=== PATIENT | male | born 1980 | race Hispanic/Latino ===

== ENCOUNTER 2018-08-20 11:29 | Observation (INO) | payer SELFPAY ==
[~2018-08-20] VITALS: Ht 165.1 cm; Wt 89.5 kg
[~2018-08-20 11:29] MED LIST: LIPITOR20 MG OR; NAPROSYN500 MG OR
[2018-08-20] MEDS ORDERED: LISINOPRIL20 MG PO (11:41)
[2018-08-20 12:57] LABS: HEMATOCRIT 46.1 % (39.0-50.0); HEMOGLOBIN 14.7 g/dl (14.0-18.0); IMMATURE GRANULOCYTES 0.1 % (0.0-5.0); MEAN CELL VOLUME 88.1 fL CALC (80.0-100.0); MEAN CORPUSCULAR HGB 28.1 pG CALC (26.0-32.0); MEAN CORPUSCULAR HGB CONC 31.9 g/L CALC (32.0-36.0); NEUT# 3.23 thou/uL (1.82-7.42); RED BLOOD COUNT 5.23 mill/uL (4.70-6.10); RED CELL DISTRI WIDTH 13.2 % (11.5-15.5)
[2018-08-20 13:11] LABS: ALBUMIN 4.6 g/dL (3.2-5.0); ALKALINE PHOSPHATASE 90 u/l (38-126); ANION GAP 17 (6-22 (CALC)); BILIRUBIN, TOTAL 0.7 mg/dL (0.0-1.4); BUN 15 mg/dL (9-20); BUN/CREATININE RATIO 24 (12-20 (CALC)); CARBON DIOXIDE 21 mmol/l (22-30); CHLORIDE 107 mmol/l (95-108); CREATININE 0.6 mg/dL (0.7-1.3); GFR > 60 ML/MIN (>=60 (CALC)); GFR FOR AFR.AMER. > 60 ML/MIN (>=60 (CALC)); POTASSIUM 4.7 mmol/l (3.5-5.1); SGOT/AST 37 u/l (17-59); SODIUM 140 mmol/l (137-146); TOTAL PROTEIN 7.6 g/dL (6.3-8.2)
[2018-08-20 16:25] VITALS: BP 143/106
[2018-08-20 17:58] VITALS: BP 148/90
[2018-08-20 20:09] VITALS: BP 103/75; BP 122/55
[2018-08-21 00:15] VITALS: BP 106/89
[2018-08-21 04:35] VITALS: BP 116/73
[2018-08-21 06:27] LABS: HEMATOCRIT 44.6 % (39.0-50.0); HEMOGLOBIN 14.3 g/dl (14.0-18.0); IMMATURE GRANULOCYTES 0.1 % (0.0-5.0); MEAN CELL VOLUME 88.3 fL CALC (80.0-100.0); MEAN CORPUSCULAR HGB 28.3 pG CALC (26.0-32.0); MEAN CORPUSCULAR HGB CONC 32.1 g/L CALC (32.0-36.0); NEUT# 3.34 thou/uL (1.82-7.42); RED BLOOD COUNT 5.05 mill/uL (4.70-6.10); RED CELL DISTRI WIDTH 13.5 % (11.5-15.5)
[2018-08-21 06:41] LABS: ALBUMIN 3.8 g/dL (3.2-5.0); ALKALINE PHOSPHATASE 80 u/l (38-126); AMYLASE 47 u/l (30-110); ANION GAP 12 (6-22 (CALC)); BILIRUBIN, TOTAL 0.5 mg/dL (0.0-1.4); BUN 17 mg/dL (9-20); BUN/CREATININE RATIO 20 (12-20 (CALC)); CARBON DIOXIDE 27 mmol/l (22-30); CHLORIDE 107 mmol/l (95-108); CREATININE 0.9 mg/dL (0.7-1.3); GFR > 60 ML/MIN (>=60 (CALC)); GFR FOR AFR.AMER. > 60 ML/MIN (>=60 (CALC)); LIPASE 98 u/l (23-300); MAGNESIUM 1.9 mg/dL (1.6-2.3); POTASSIUM 4.5 mmol/l (3.5-5.1); SGOT/AST 25 u/l (17-59); SODIUM 141 mmol/l (137-146); TOTAL PROTEIN 6.6 g/dL (6.3-8.2)
[2018-08-21 08:00] VITALS: BP 143/91
[2018-08-21 11:30] VITALS: BP 111/72
[2018-08-21] MEDS ORDERED: LISINOPRIL20 MG PO (14:35)
== END 2018-08-21 15:22 | disposition home or self-care (01) | DRG 305 ==
LOC: ED 11:29 → ED-I 12:33 → ED 14:05 → MS2 14:06
PROVIDERS: Family Medicine; ADMIT Internal Medicine Nephrology; ATTEND Internal Medicine Nephrology
DX: I10 Essential (primary) hypertension (principal); E78.5 Hyperlipidemia, unspecified; F10.10 Alcohol abuse, uncomplicated; T46.5X6A Underdosing of other antihypertensive drugs, initial encounter
CPT/HCPCS: G0378; J1650

== ENCOUNTER 2019-12-04 11:59 | Emergency (ER) | payer SELFPAY ==
[~2019-12-04 11:59] MED LIST changes: +LISINOPRIL20 MG PO
[2019-12-04 12:41] LABS: IMMATURE GRANULOCYTES 0.1 % (0.0-5.0); MEAN CELL VOLUME 85.1 fL CALC (80.0-100.0); MEAN CORPUSCULAR HGB 27.2 pG CALC (26.0-32.0); NEUT# 3.67 thou/uL (1.82-7.42); RED BLOOD COUNT 5.77 mill/uL (4.70-6.10); RED CELL DISTRI WIDTH 13.6 % (11.5-15.5)
[2019-12-04 12:42] LABS: HEMATOCRIT 49.1 % (39.0-50.0); HEMOGLOBIN 15.7 g/dl (14.0-18.0)
[2019-12-04 13:03] LABS: ALBUMIN 4.7 g/dL (3.2-5.0); ALKALINE PHOSPHATASE 132 u/l (38-126); ANION GAP 14 (6-22 (CALC)); BILIRUBIN, TOTAL 0.5 mg/dL (0.0-1.4); BUN 13 mg/dL (9-20); BUN/CREATININE RATIO 16 (12-20 (CALC)); CARBON DIOXIDE 26 mmol/l (22-30); CHLORIDE 104 mmol/l (95-108); CREATININE 0.8 mg/dL (0.7-1.3); GFR > 60 ML/MIN (>=60 (CALC)); GFR FOR AFR.AMER. > 60 ML/MIN (>=60 (CALC)); LIPASE 101 u/l (23-300); POTASSIUM 4.7 mmol/l (3.5-5.1); SODIUM 139 mmol/l (137-146); TOTAL PROTEIN 8.3 g/dL (6.3-8.2)
[2019-12-04 13:05] LABS: SGOT/AST 66 u/l (17-59)
[2019-12-04 13:38] VITALS: BP 144/91
[2019-12-04 14:11] LABS: URINE BILIRUBIN - DIPSTICK NEGATIVE (NEGATIVE); URINE BLOOD DIPSTICK NEGATIVE (NEGATIVE); URINE COLOR YELLOW; URINE GLUCOSE - DIPSTICK NEGATIVE (NEGATIVE); URINE KETONE NEGATIVE (NEGATIVE); URINE LEUK ESTERASE NEGATIVE (NEGATIVE); URINE NITRITE - DIPSTICK NEGATIVE (Negative); URINE PH 6.5 (4.5-8.0); URINE PROTEIN - DIPSTICK NEGATIVE (NEG-TRACE); URINE UROBILINOGEN - DIPSTICK 0.2 E.U./dL (0.2)
[2019-12-04] MEDS ORDERED: LISINOPRIL20 M1 PO (14:18)
[2019-12-04] MEDS ORDERED: LOVASTATIN20 M1 PO (14:18)
== END 2019-12-04 13:38 | disposition home or self-care (01) | DRG 179 ==
LOC: ED 11:59
PROVIDERS: Family Medicine
DX: U07.1 COVID-19 (principal); I10 Essential (primary) hypertension

== ENCOUNTER 2021-06-08 16:50 | Emergency (ER) | payer OTHER ==
[~2021-06-08] VITALS: Ht 165.1 cm; Wt 86.0 kg
[~2021-06-08 16:50] MED LIST changes: +LISINOPRIL20 M1 PO; +LOVASTATIN20 M1 PO
[2021-06-08] MEDS ORDERED: VOLTAREN1%GEL TOP (18:38)
[2021-06-08] MEDS ORDERED: FLEXERIL5 M1 PO (18:38)
[2021-06-08] MEDS ORDERED: IBUPROFEN600 MG PO (18:38)
[2021-06-08 19:00] VITALS: BP 148/95
== END 2021-06-08 19:00 | disposition home or self-care (01) | DRG 556 ==
LOC: ED 16:50
DX: M25.511 Pain in right shoulder (principal); M54.50 Low back pain, unspecified; I10 Essential (primary) hypertension; E78.5 Hyperlipidemia, unspecified; W17.89XA Other fall from one level to another, initial encounter; Y93.89 Activity, other specified

== ENCOUNTER 2024-09-12 06:58 | Day surgery (SDC) | payer OTHER ==
[~2024-09-12 06:58] MED LIST changes: +FLEXERIL5 M1 PO; +IBUPROFEN600 MG PO; +OMEPRAZOLE DR40 MG PO; +VOLTAREN1%GEL TOP; +ZOFRAN4 MG/TAB PO
[2024-09-12] MEDS ORDERED: LACTATED RINGER'S 1,000 ML IV ONE (06:59)
[2024-09-12] MEDS ORDERED: FAMOTIDINE 10MG/ML 2ML SDV IV ONE (06:59)
[2024-09-12 09:35] VITALS: BP 145/105
[2024-09-12] MEDS ORDERED: PROPOFOL 200 MG/20 ML VIAL IV ONE (10:34)
[2024-09-12] MEDS ORDERED: LIDOCAINE HCL 2% 2ML SDV IV ONE (10:34)
[2024-09-12] MEDS ORDERED: GLYCOPYRROLATE 0.2 MG/ML IV ONE (10:34)
== END 2024-09-12 09:13 | disposition home or self-care (01) | DRG 951 ==
LOC: ENDO 06:58
PROVIDERS: ATTEND Surgery
PROC: 0DJD8ZZ Inspection of Lower Intestinal Tract, Via Natural or Artificial Opening Endoscopic (ICD-10-PCS; principal; 2024-09-12)
DX: Z12.11 Encounter for screening for malignant neoplasm of colon (principal); K64.8 Other hemorrhoids; I10 Essential (primary) hypertension; I49.8 Other specified cardiac arrhythmias; E78.5 Hyperlipidemia, unspecified; K21.9 Gastro-esophageal reflux disease without esophagitis
CPT/HCPCS: J1596